=== PATIENT | female | born 1940 | race Caucasian/White ===

== ENCOUNTER 2016-12-02 18:05 | Emergency (ER) | payer OTHER, MEDICAID ==
[~2016-12-02 18:05] MED LIST: ASPIR LOW81 MG PO; BG MC; CENTRUM1 TA2 PO; COL100 PO; DEXPF IV; EXFORGE HCT PO; GLU500 PO; HUMULIN R100 U/1 M1 SC; IPRATROPIUM BROM3 M2 HHN; L40I IV; LEVOTHYROXIN0.025 M2 PO; LOSARTAN POTAS100 M1 PO; LOVAZA1 G1 PO; METOPROLOL TART25 M1 PO; NIT0.4 SL; NOR5 PO; ZOCOR40 MG PO
[2016-12-02 20:35] VITALS: BP 135/91
== END 2016-12-02 20:36 | disposition home or self-care (01) ==
LOC: ED 18:05
DX: H10.31 Unspecified acute conjunctivitis, right eye (principal); I10 Essential (primary) hypertension; E11.9 Type 2 diabetes mellitus without complications; E78.5 Hyperlipidemia, unspecified; Z88.5 Allergy status to narcotic agent; Z79.899 Other long term (current) drug therapy; Z79.84 Long term (current) use of oral hypoglycemic drugs